=== PATIENT | male | born 1990 | race African-American/Black ===

== ENCOUNTER 2020-04-01 21:48 | Emergency (ER) | payer SELFPAY ==
[~2020-04-01] VITALS: Ht 180.3 cm; Wt 77.0 kg
[2020-04-01] MEDS: ACETAMINOPHEN WITH CODEINE 300/30MG TABLET PO ONE (22:19)
[2020-04-01 22:53] VITALS: BP 120/80
== END 2020-04-01 22:54 | disposition home or self-care (01) ==
LOC: ER 21:48
DX: K02.9 Dental caries, unspecified (principal)
CPT/HCPCS: 99283